=== PATIENT | male | born 1965 | race Caucasian/White ===

== ENCOUNTER → 2021-02-01 | Outpatient (CLI) | payer OTHER ==
[~2021-02-01] MED LIST: AMIODARONE HCL200 MG PO; ASPIRIN EC81 MG PO; BANOPHEN50 MG PO; BENADRYL 50MG C50 MG PO; BROVANA15 MCG/2 M NEB; BUDESONIDE0.5 MG/2 M NEB; CARVEDILOL12.5 MG PO; ECOTRIN325 MG PO; ELIQUIS 5 MG TAB5 MG PO; ENTRESTO 24 MG1 EACH PO; GLUCOPHAGE500 MG PO; JANUVIA100 MG PO; K-DUR TAB 20 M20 MEQ PO; LASIX40 MG PO; LEVAQUIN500 MG PO; LEVOFLOXACIN750 MG PO; MOBIC15 MG PO; NEURONTIN800 MG PO; OXYCODONE HCL10 MG PO; PAMELOR25 MG PO; PERCOCET 10-321 EACH PO; PREDNISONE 20 M20 MG PO; PROTONIX 40 MG40 MG GT; TENORMIN 25 MG25 MG PO; VIBRAMYCIN100 MG PO; ZANAFLEX4 MG PO; ZESTRIL40 MG PO
[2021-02-01 15:21] LABS: HEMOGLOBIN 14.5 gm/dl (14.0-17.5); RED BLOOD COUNT 4.97 M/UL (4.20-5.50); WHITE BLOOD COUNT 7.9 K/UL (4.5-11.0)
[2021-02-01 15:51] LABS: BUN/CREATININE RATIO 15 (0-10)
== END ==
LOC: LAB 13:11
PROVIDERS: Internal Medicine Cardiovascular Disease
DX: I42.0 Dilated cardiomyopathy (principal); I11.0 Hypertensive heart disease with heart failure; I50.22 Chronic systolic (congestive) heart failure
CPT/HCPCS: 71046; 80048; 85025

== ENCOUNTER 2021-02-03 07:25 | Outpatient (CLI) | payer OTHER ==
[~2021-02-03] VITALS: Ht 172.7 cm; Wt 144.7 kg
[~2021-02-03 07:25] MED LIST changes: -BANOPHEN50 MG PO; -JANUVIA100 MG PO; -LEVOFLOXACIN750 MG PO; -NEURONTIN800 MG PO; -OXYCODONE HCL10 MG PO
[2021-02-03] MEDS ORDERED: NEURONTIN800 MG PO (08:42)
[2021-02-03] MEDS ORDERED: JANUVIA100 MG PO (08:42)
[2021-02-03] MEDS ORDERED: OXYCODONE HCL10 MG PO (08:43)
[2021-02-03] MEDS ORDERED: BANOPHEN50 MG PO (08:44)
[2021-02-03] MEDS ORDERED: LEVOFLOXACIN750 MG PO (11:21)
== END 2021-02-04 11:00 | disposition home or self-care (01) ==
LOC: CATH 07:25 → PROG CARE 12:12 → CATH 02-04 11:00
DX: I42.0 Dilated cardiomyopathy (principal); I11.0 Hypertensive heart disease with heart failure; I50.22 Chronic systolic (congestive) heart failure; I48.92 Unspecified atrial flutter; M19.90 Unspecified osteoarthritis, unspecified site; E78.00 Pure hypercholesterolemia, unspecified; G47.33 Obstructive sleep apnea (adult) (pediatric); E66.9 Obesity, unspecified; E11.8 Type 2 diabetes mellitus with unspecified complications; Z79.84 Long term (current) use of oral hypoglycemic drugs; Z79.82 Long term (current) use of aspirin; Z79.899 Other long term (current) drug therapy; Z79.01 Long term (current) use of anticoagulants; Z86.74 Personal history of sudden cardiac arrest; Z87.09 Personal history of other diseases of the respiratory system; Z87.891 Personal history of nicotine dependence; Z95.9 Presence of cardiac and vascular implant and graft, unspecified
CPT/HCPCS: 33249; 71045; 82962; 93641; 94640; 94664; 94760; 99152; 99153; C1721; C1895; C1898; J0690; J1200; J1644; J2250; J2270; J3010; J3370; J7040; J7050; J7070